=== PATIENT | female | born 1975 | race Hispanic/Latino ===

== ENCOUNTER 2020-08-24 15:15 | Outpatient (CLI) | payer BC ==
--- NOTE | 2020-08-24 15:54 | XRay Report ---
CHEST 2 VIEWS INDICATION / CLINICAL INFORMATION: COUGH. COMPARISON: None available. FINDINGS: SUPPORT DEVICES: None. HEART / MEDIASTINUM: No significant abnormality. LUNGS / PLEURA: No significant pulmonary or pleural abnormality. No pneumothorax. ADDITIONAL FINDINGS: No significant additional findings. IMPRESSION: 1. No acute findings. Signer Name: Haile Jean MD Signed: 08/24/2020 3:50 PM Workstation Name: [id number]
== END 2020-08-24 15:16 | disposition home or self-care (01) ==
LOC: XRAY 15:15
PROVIDERS: ATTEND Internal Medicine
DX: R05 Cough (principal)
CPT/HCPCS: 71046

== ENCOUNTER 2021-03-07 15:15 | Outpatient (CLI) | payer BC ==
[2021-03-07 15:53] LABS: Alanine Aminotransferase 12 units/L (7-56); Albumin 4.5 g/dL (3.9-5); BUN/Creatinine Ratio 18; Blood Urea Nitrogen 14 mg/dL (7-17); Calcium 9.6 mg/dL (8.4-10.2); Chol/HDL Ratio 4.08 %; HDL Cholesterol 46 mg/dL (40-59); Hemolysis Index 16; LDL Cholesterol,Direct 132 mg/dL (50-130)
[2021-03-07 16:37] LABS: Basophils % (Auto) 0.6 % (0.0-1.8); Eosinophils # (Auto) 0.1 K/mm3 (0.0-0.4); Eosinophils % (Auto) 1.4 % (0.0-4.3); Hematocrit 39.2 % (30.3-42.9); Hemoglobin 13.4 gm/dl (10.1-14.3); Lymphocytes # (Auto) 2.8 K/mm3 (1.2-5.4); Lymphocytes % (Auto) 34.5 % (13.4-35.0); Mean Corpuscular HGB Conc 34 % (30-34); Mean Corpuscular Volume 87 fl (79-97); Monocytes # (Auto) 0.4 K/mm3 (0.0-0.8); Monocytes % (Auto) 5.6 % (0.0-7.3); Platelet Count 247 K/mm3 (140-440); Red Blood Count 4.52 M/mm3 (3.65-5.03); Red Cell Distribution Width 13.3 % (13.2-15.2)
[2021-03-11 10:55] LABS: Vitamin D, 25-OH, D2 <4 ng/mL
== END 2021-03-07 15:16 | disposition home or self-care (01) ==
LOC: LAB 15:15
PROVIDERS: ATTEND Internal Medicine
DX: Z13.1 Encounter for screening for diabetes mellitus (principal); Z00.00 Encounter for general adult medical examination without abnormal findings; E78.5 Hyperlipidemia, unspecified; E07.9 Disorder of thyroid, unspecified; E55.9 Vitamin D deficiency, unspecified
CPT/HCPCS: 36415; 80053; 80061; 82306; 83036; 84443; 85025

== ENCOUNTER 2021-03-16 10:48 | Outpatient (CLI) | payer BC ==
--- NOTE | 2021-03-16 13:46 | Ultrasound Report ---
ULTRASOUND THYROID INDICATION / CLINICAL INFORMATION: DISORDER OF THYROID UNSPECIFIED. COMPARISON: None available. FINDINGS: RIGHT LOBE: Size = 4.7 x 1.5 x 2.0 cm. - Echogenicity: Normal. - Vascularity: Normal. - Nodules < 1 cm: There are 2 subcentimeter cysts in the mid and inferior right thyroid lobe - Nodules >= 1 cm or Suspicious Nodules: 1 nodule measures up to 1.2 cm to the superior pole. - NODULE # 1 -- Location: right upper -- Size: 1.2 x 0.7 x 1.1 cm -- Composition: Solid = 2 points -- Echogenicity: Hypoechoic = 2 points -- Shape: Nclxd-jfms-qgus = 0 points -- Margin: Smooth = 0 points -- Echogenic Foci: None = 0 points -- Additional Findings: None. -- ACR TI-RADS Score = 4. -- ACR TI-RADS Category = TR-4 (4-6 points). LEFT LOBE: Size = 4.7 x 1.5 x 2.0 cm. - Echogenicity: Normal. - Vascularity: Normal. - Nodules < 1 cm: None. - Nodules >= 1 cm or Suspicious Nodules: None. ISTHMUS: No significant abnormality. Thickness = 0.3 cm. - Nodules < 1 cm: None. - Nodules >= 1 cm or Suspicious Nodules: None. LYMPH NODES: No abnormal lymph nodes. PARATHYROID GLANDS: No abnormal parathyroid gland. ADDITIONAL FINDINGS: None. IMPRESSION: 1.2 cm nodule in the superior right thyroid lobe as described. ACR TI RADS recommendations are for f ollow up in 1 year. Note: Nodule size based on mean (average) size of 3 dimensions. Note: Nodules < 1 cm do not typically require follow-up or FNA unless there are suspicious features ( VERONICA, 2015) ACR TI-RADS Thyroid Nodule Recommendations TI-RADS 1 (0 points) -- Benign. No FNA or follow-up. TI-RADS 2 (1-2 points) -- Not suspicious. No FNA or follow-up. TI-RADS 3 (3 points) -- Mildly suspicious. Follow up in 1 year if 1.5 cm. FNA if 2.5 cm. TI-RADS 4 (4-6 points) -- Moderately suspicious. Follow up in 1 year if 1.0 cm. FNA if 1.5 cm. TI-RADS 5 (7+ points) -- Highly suspicious. Follow up in 1 year if 0.5 cm. FNA if 1.0 cm. Signer Name: Neville Corley Jr, MD Signed: 03/16/2021 1:41 PM Workstation Name: [id number]
--- NOTE | 2021-03-16 18:01 | Mammography Report ---
DIGITAL SCREENING MAMMOGRAM WITH CAD, 03/16/2021 CLINICAL INFORMATION / INDICATION: Routine screening mammography. TECHNIQUE: Digital bilateral 2D mammography was obtained in the craniocaudal and mediolateral obliqu e projections. This examination was interpreted with the benefit of Computer-Aided Detection analysis . COMPARISON: Xik-lu-hvvuv prior mammograms are not available. FINDINGS: Breast Density: The breasts are heterogeneously dense, which may obscure small masses. No dominant mass, suspicious calcifications, or architectural distortion in either breast. IMPRESSION: No mammographic evidence of malignancy. Follow up recommendation: Routine yearly BI-RADS Category 1: Negative. A "normal" or negative report should not discourage follow up or biopsy of a clinically significant f inding. A written summary of these findings will be mailed to the patient. The patient will be entered into a mammography reporting system which will generate a reminder letter for the patient's next appointmen t at the appropriate interval. The [employer] recommends yearly mammograms starting at age 40 and continuing as l solomon as a woman is in good health. Breast MRI is recommended for women with an approximate 20-25% or greater lifetime risk of breast cancer, including women with a strong family history of breast or ova alexandre cancer or who have been treated for Hodgkin's disease. Signer Name: Aracelis Seals MD Signed: 03/16/2021 5:57 PM Workstation Name: [id number]
== END 2021-03-16 10:49 | disposition home or self-care (01) ==
LOC: MAMMO 10:48
PROVIDERS: ATTEND Internal Medicine
DX: Z12.31 Encounter for screening mammogram for malignant neoplasm of breast (principal); E07.9 Disorder of thyroid, unspecified; E04.1 Nontoxic single thyroid nodule
CPT/HCPCS: 76536; 77067

== ENCOUNTER 2021-06-28 09:06 | Outpatient (CLI) | payer BC ==
--- NOTE | 2021-06-28 10:14 | Ultrasound Report ---
ULTRASOUND THYROID INDICATION / CLINICAL INFORMATION: NONTOXIC SINGLE THYROID NODULE. COMPARISON: 03/16/2021 FINDINGS: RIGHT LOBE: Size = 4.9 x 1.5 x 1.6 cm. - Echogenicity: Normal. - Vascularity: Normal. - Nodules < 1 cm: There are 2 small hypoechoic cysts or nodules in the right lobe which are unchanged . - Nodules >= 1 cm or Suspicious Nodules: Stable appearance of the 1.1 x 0.7 x 1.0 cm nodule near the superior pole. - NODULE # 1 -- Location: right upper -- Size: 1.1 x 0.7 x 1.0 cm -- Composition: Solid = 2 points -- Echogenicity: Hypoechoic = 2 points -- Shape: Ezdjl-anrk-ozlp = 0 points -- Margin: Smooth = 0 points -- Echogenic Foci: None = 0 points -- Additional Findings: None. -- ACR TI-RADS Score = 4. -- ACR TI-RADS Category = TR-4 (4-6 points). LEFT LOBE: Size = 4.5 x 1.4 x 1.4 cm. - Echogenicity: Normal. - Vascularity: Normal. - Nodules < 1 cm: Tiny 3 mm cyst near mid pole which is in retrospect unchanged. - Nodules >= 1 cm or Suspicious Nodules: None. ISTHMUS: No significant abnormality. Thickness = 0.2 cm. - Nodules < 1 cm: None. - Nodules >= 1 cm or Suspicious Nodules: None. LYMPH NODES: No abnormal lymph nodes. PARATHYROID GLANDS: No abnormal parathyroid gland. ADDITIONAL FINDINGS: None. IMPRESSION: No change since 03/16/2021. Stable appearance of the 1.1 cm nodule in the superior right thyroid lobe. TI RADS recommendations are for follow-up in one year. Note: Nodule size based on mean (average) size of 3 dimensions. Note: Nodules < 1 cm do not typically require follow-up or FNA unless there are suspicious features ( VERONICA, 2015) ACR TI-RADS Thyroid Nodule Recommendations TI-RADS 1 (0 points) -- Benign. No FNA or follow-up. TI-RADS 2 (1-2 points) -- Not suspicious. No FNA or follow-up. TI-RADS 3 (3 points) -- Mildly suspicious. Follow up in 1 year if 1.5 cm. FNA if 2.5 cm. TI-RADS 4 (4-6 points) -- Moderately suspicious. Follow up in 1 year if 1.0 cm. FNA if 1.5 cm. TI-RADS 5 (7+ points) -- Highly suspicious. Follow up in 1 year if 0.5 cm. FNA if 1.0 cm. Signer Name: Neville Corley Jr, MD Signed: 06/28/2021 10:09 AM Workstation Name: [id number]
== END 2021-06-28 09:07 | disposition home or self-care (01) ==
LOC: US 09:06
PROVIDERS: ATTEND Surgery
DX: E04.1 Nontoxic single thyroid nodule (principal)
CPT/HCPCS: 76536

== ENCOUNTER 2022-03-27 10:25 | Outpatient (CLI) | payer BC ==
[2022-03-27 12:23] LABS: Basophils % (Auto) 0.5 % (0.0-1.8); Eosinophils # (Auto) 0.1 K/mm3 (0.0-0.4); Eosinophils % (Auto) 1.8 % (0.0-4.3); Hematocrit 42.8 % (30.3-42.9); Lymphocytes # (Auto) 2.8 K/mm3 (1.2-5.4); Lymphocytes % (Auto) 38.7 % (13.4-35.0); Mean Corpuscular HGB Conc 33 % (30-34); Mean Corpuscular Volume 86 fl (79-97); Monocytes # (Auto) 0.4 K/mm3 (0.0-0.8); Monocytes % (Auto) 4.9 % (0.0-7.3); Platelet Count 292 K/mm3 (140-440); Red Cell Distribution Width 13.6 % (13.2-15.2)
--- NOTE | 2022-03-27 12:24 | Ultrasound Report ---
LIMITED ABDOMINAL ULTRASOUND INDICATION: R10.32. Left lower quadrant pain for one month. COMPARISON: No relevant prior imaging study available. FINDINGS: Targeted ultrasound was performed in the left lower quadrant at the site of pain. No abnormality is d etected in the left lower quadrant. The left ovary is visualized and unremarkable measuring 1.5 x 1.1 x 1.2 cm. The visualized bladder is unremarkable. The right ovary and uterus are not visualized. No evidence for pelvic cyst, mass or fluid collection. IMPRESSION: No significant abnormality identified.. Signer Name: Neville Corley Jr, MD Signed: 03/27/2022 12:20 PM Workstation Name: [id number]
[2022-03-27 12:40] LABS: Alanine Aminotransferase 22 units/L (7-56); BUN/Creatinine Ratio 18; Blood Urea Nitrogen 14 mg/dL (7-17); Calcium 9.8 mg/dL (8.4-10.2); Chol/HDL Ratio 4.96 %; HDL Cholesterol 50 mg/dL (40-59); Hemolysis Index 8; LDL Cholesterol,Direct 172 mg/dL (50-130)
--- NOTE | 2022-03-27 13:09 | Cat Scan Report ---
CT HEAD WITHOUT CONTRAST INDICATION / CLINICAL INFORMATION: R42. Dizziness and giddiness. Syncope. TECHNIQUE: Axial imaging performed from the skull apex through the skull base without the use of cont rast. Sagittal and coronal reformatted images. All CT scans at this location are performed using CT dose reduction for ALARA by means of automated exposure control. COMPARISON: None available. FINDINGS: CEREBRAL PARENCHYMA: No significant abnormality. No acute territorial infarct. HEMORRHAGE: None. EXTRA-AXIAL SPACES: Normal in size and morphology for the patient's age. VENTRICULAR SYSTEM: Normal in size and morphology for the patient's age. MIDLINE SHIFT OR HERNIATION: None. CEREBELLUM / BRAINSTEM: No significant abnormality. CALVARIUM: No significant abnormality. ORBITS: Normal as visualized. PARANASAL SINUSES / MASTOID AIR CELLS: Normal as visualized. SOFT TISSUES of HEAD: No significant abnormality. ADDITIONAL FINDINGS: None. IMPRESSION: No acute intracranial abnormality. Cranial CT scan within normal limits. Signer Name: Neville Corley Jr, MD Signed: 03/27/2022 1:05 PM Workstation Name: [id number]
== END 2022-03-27 10:26 | disposition home or self-care (01) ==
LOC: US 10:25
PROVIDERS: ATTEND Internal Medicine
DX: Z00.00 Encounter for general adult medical examination without abnormal findings (principal); E78.5 Hyperlipidemia, unspecified; R73.03 Prediabetes; E55.9 Vitamin D deficiency, unspecified; R42 Dizziness and giddiness; E03.9 Hypothyroidism, unspecified; R10.32 Left lower quadrant pain
CPT/HCPCS: 36415; 70450; 76705; 80053; 80061; 83036; 84443; 85025